=== PATIENT | female | born 1950 | race Caucasian/White ===

== ENCOUNTER 2020-03-10 11:25 | Outpatient (REF) | payer MEDICARE, SELFPAY ==
--- NOTE | 2020-03-10 | MM_ITS ---
EXAMINATION: BONE DENSITOMETRY CLINICAL INDICATION: Encounter for screening for osteoporosis. Osteopenia. COMPARISON: Previous BD dated 01/03/2015 and baseline BD dated 05/22/2009. TECHNIQUE: Using a [employer] DXA System (software version: 13.1) manufactured by [employer], dual-energy x-ray absorptiometry was performed of the lumbar spine and left hip. The images are of good technical quality. Summary results are attached. FINDINGS: AP SPINE L1-L4: Current: BMD 0.958 g/cm2, Z-score -1.0, T-score -1.9, osteopenia, 1.3% decrease from previous, 5.1% decrease from baseline (<5% change is not significant). Prior: BMD 0.971 g/cm2. Baseline: BMD 1.009 g/cm2. LEFT FEMUR, NECK: Current: BMD 0.747 g/cm2, Z-score -1.0, T-score -2.1, osteopenia. Prior: BMD 0.793 g/cm2. Baseline: BMD 0.807 g/cm2. LEFT FEMUR, TOTAL: Current: BMD 0.733 g/cm2, Z-score -1.3, T-score -2.2, osteopenia, 9.7% decrease from previous, 11.9% decrease from baseline (<5% change is not significant). Prior: BMD 0.812 g/cm2. Baseline: BMD 0.832 g/cm2. IDENTIFIED RISK FACTORS: Height loss. Thiazide. Menopause. HISTORY OF FRACTURE: None listed. MEDICATIONS: Calcium supplement and/or multivitamin. IMPRESSION: 1. DIAGNOSIS: Osteopenia based on the lowest T-score value of -2.2 in the total femur applying World Health Organization criteria. 2. 10-YEAR FRACTURE RISK PREDICTION, FRAX: Major osteoporotic fracture (clinical spine, forearm, hip or shoulder) 11.1%. Hip fracture 2.0%. 3. Treatment Recommendations: NOF guidelines recommend consideration for treatment in postmenopausal women and men age 50 and older presenting with the following: -A hip or vertebral (clinical or morphometric) fracture. -T-score less than or equal to -2.5 at the femoral neck or spine after appropriate evaluation to exclude secondary causes. -Low bone mass at the hip or spine and a 10-year fracture probability by FRAX of greater than or equal to 3% for hip fracture or greater than or equal to 20% for major osteoporotic fracture based on the [place] adapted WHO algorithm. 4. Other Recommendations: All treatment decisions require clinical judgment and consideration of individual patient factors, including patient preferences, comorbidities, previous drug use, risk factors not captured in the FRAX model (e.g. frailty, falls, vitamin D deficiency, increased bone turnover, interval significant decline in bone density) and possible under or overestimation of fracture risk by FRAX. Additional medical evaluation for secondary cause of low bone mineral density may be appropriate. FUTURE SCAN RECOMMENDATION: People with diagnosed cases of osteoporosis or at high risk for fracture should have regular bone mineral density tests. For patients eligible for Medicare, routine testing is allowed once every 2 years. The testing frequency can be increased to one year for patients who have rapidly progressing disease, those who are receiving or discontinuing medical therapy to restore bone mass, or have additional risk factors.
--- NOTE | 2020-03-10 12:02 | MM_ITS ---
EXAMINATION: MM SCREENING DIGITAL BREAST TOMOSYNTHESIS, BILATERAL CLINICAL INFORMATION: Screening. Asymptomatic. The lifetime risk of breast cancer based on the Tyrer-Cuzick Model is 6%. COMPARISON: Mammography: 02/19/2019, 02/07/2018 TECHNIQUE: Digital breast tomosynthesis is performed in both the craniocaudal and mediolateral oblique views along with computer-aided detection (CAD). Synthesized 2D images are generated from the tomosynthesis. FINDINGS: There are scattered areas of fibroglandular density (ACR BI-RADS breast composition Category b). There are no significant masses, abnormal calcifications, or other abnormalities. There is biopsy clip marker again noted right breast upper outer quadrant. The axilla and skin contours are unremarkable. No significant changes. IMPRESSION: No mammographic evidence of malignancy. ASSESSMENT: BI-RADS 1: Negative RECOMMENDATION: Routine annual mammography screening. This patient's information was entered into a reminder system with a target due date for their next mammogram.
== END 2020-03-10 11:26 | disposition home or self-care (01) ==
LOC: HO.MAMMO 11:25
PROVIDERS: Visit Provider Internal Medicine
DX: Z12.31 Encounter for screening mammogram for malignant neoplasm of breast (principal); Z13.820 Encounter for screening for osteoporosis; R29.890 Loss of height; Z78.0 Asymptomatic menopausal state; Z79.899 Other long term (current) drug therapy
CPT/HCPCS: 77063; 77067; 77080

== ENCOUNTER 2021-03-24 09:27 | Outpatient (REF) | payer MEDICARE, SELFPAY ==
--- NOTE | ~2021-03-24 | MM_ITS ---
EXAMINATION: MM SCREENING DIGITAL BREAST TOMOSYNTHESIS, BILATERAL CLINICAL INFORMATION: Screening. Asymptomatic. The lifetime risk of breast cancer based on the Tyrer-Cuzick Model is 5%. COMPARISON: Mammography: 03/10/2020, 02/19/2019, 02/07/2018 TECHNIQUE: Digital breast tomosynthesis is performed in both the craniocaudal and mediolateral oblique views along with computer-aided detection (CAD). Synthesized 2D images are generated from the tomosynthesis. Additional left MLO view and additional right CC view are provided. FINDINGS: There are scattered areas of fibroglandular density (ACR BI-RADS breast composition Category b). There are no significant masses, abnormal calcifications, or other abnormalities. There is biopsy clip marker right breast mid upper outer quadrant. Parenchymal pattern is similar to prior studies. MM/MM tomosynthesis screening BI IMPRESSION: No mammographic evidence of malignancy. ASSESSMENT: BI-RADS 1: Negative RECOMMENDATION: Routine annual mammography screening. This patient's information was entered into a reminder system with a target due date for their next mammogram.
== END 2021-03-24 09:28 | disposition home or self-care (01) ==
LOC: HO.MAMMO 09:27
PROVIDERS: PCP Internal Medicine; Visit Provider Internal Medicine
DX: Z12.31 Encounter for screening mammogram for malignant neoplasm of breast (principal)
CPT/HCPCS: 77063; 77067

== ENCOUNTER 2022-03-30 09:30 | Outpatient (REF) | payer MEDICARE, SELFPAY ==
--- NOTE | ~2022-03-30 | MM_ITS ---
EXAMINATION: MM SCREENING DIGITAL BREAST TOMOSYNTHESIS, BILATERAL CLINICAL INFORMATION: Screening. Asymptomatic. COMPARISON: Mammography: March 24, 2021 and studies dating back to January 02, 2016 TECHNIQUE: Digital breast tomosynthesis is performed in both the craniocaudal and mediolateral oblique views along with computer-aided detection (CAD). Synthesized 2D images are generated from the tomosynthesis. FINDINGS: There are scattered areas of fibroglandular density (ACR BI-RADS breast composition Category b). There are no significant masses, abnormal calcifications, or other abnormalities. MM/MM tomosynthesis screening BI IMPRESSION: No significant changes from prior exam. ASSESSMENT: BI-RADS 1: Negative RECOMMENDATION: Routine annual mammography screening. This patient's information was entered into a reminder system with a target due date for their next mammogram.
== END 2022-03-30 09:31 | disposition home or self-care (01) ==
LOC: HO.MAMMO 09:30
PROVIDERS: PCP Internal Medicine; Visit Provider Internal Medicine
DX: Z12.31 Encounter for screening mammogram for malignant neoplasm of breast (principal)
CPT/HCPCS: 77063; 77067

== ENCOUNTER 2023-04-05 09:35 | Outpatient (REF) | payer MEDICARE, SELFPAY ==
--- NOTE | ~2023-04-05 | MM_ITS ---
EXAMINATION: MM SCREENING DIGITAL BREAST TOMOSYNTHESIS, BILATERAL CLINICAL INFORMATION: Screening. Asymptomatic. The patient has a remote history of a right excisional breast biopsy for benign disease. COMPARISON: Mammography: This study is compared with prior exams dating back to 2017. TECHNIQUE: Digital breast tomosynthesis is performed in both the craniocaudal and mediolateral oblique views along with computer-aided detection (CAD). Synthesized 2D images are generated from the tomosynthesis. FINDINGS: There are scattered areas of fibroglandular density (ACR BI-RADS breast composition Category b). There are no significant masses, abnormal calcifications, or other abnormalities. There is a tissue marker in the upper outer quadrant of the right breast from prior benign percutaneous biopsy. There are a few, bilateral benign secretory calcifications in each breast. MM/MM tomosynthesis screening BI IMPRESSION: No mammographic evidence of malignancy. ASSESSMENT: BI-RADS BI-RADS 2 - Benign Findings RECOMMENDATION: Routine annual mammography screening. 1 year F/U This examination should not preclude the clinical evaluation of a suspicious palpable abnormality. This patient's information was entered into a reminder system with a target due date for their next mammogram.
== END 2023-04-05 09:36 | disposition home or self-care (01) ==
LOC: HO.MAMMO 09:35
PROVIDERS: PCP Internal Medicine; Visit Provider Internal Medicine
DX: Z12.31 Encounter for screening mammogram for malignant neoplasm of breast (principal)
CPT/HCPCS: 77063; 77067

== ENCOUNTER → 2023-04-05 09:45 | Outpatient (BNV) | payer MEDICARE, SELFPAY | PROVIDERS: PCP Internal Medicine; Visit Provider Radiology Diagnostic Radiology | DX: Z12.31 Encounter for screening mammogram for malignant neoplasm of breast (principal) | CPT/HCPCS: 77063; 77067 ==

== ENCOUNTER 2024-03-26 01:15 | Emergency (ER) | payer MEDICARE, SELFPAY ==
[2024-03-26 01:18] VITALS: BP 214/88; PULSE 109; RESP 16; TEMP 36.6; O2SAT 98; BMI 37.5
--- NOTE | 2024-03-26 01:28 | ECG_ITS ---
Test Reason : hypertension Blood Pressure : / mmHG Vent. Rate : 094 BPM Atrial Rate : 094 BPM P-R Int : 132 ms QRS Dur : 090 ms QT Int : 372 ms P-R-T Axes : 054 046 024 degrees QTc Int : 465 ms Normal sinus rhythm Nonspecific ST abnormality Abnormal ECG When compared with ECG of 24-OCT-2018 10:29, No significant change was found Referred By: Generic ED Physician Electronically Signed By:SONALI MAZA MD
[2024-03-26 01:45] VITALS: BP 170/72; PULSE 74; RESP 15; TEMP 36.8; O2SAT 97
[2024-03-26 01:59] LABS: MANUAL DIFF FLAG NO
--- NOTE | 2024-03-26 01:59 | MHC.EDTECH ---
This pct just assumed care of Patient ,ekg taken and was read by Provider ,blood drawn and sent to lab ,Patient was change into hospital attire and hooked up to night monitor ,NO apparent distress noted at this time ,Patient watching television ,Patient daughter at bedside ,will continue to monitor .
[2024-03-26 02:00] LABS: Basophils Percent Auto 0.3 % (0-2); Eosinophils Absolute Auto 0.1 X10*3/uL (0.0-0.4); Eosinophils Percent Auto 1.9 % (0-4); Hematocrit 34.4 % (37.0-47.0); Hemoglobin 11.7 g/dl (12.0-16.0); Imm Gran Abs Auto 0.01 X10*3/uL (0.00-0.03); Imm Gran Pct Auto 0.2 % (0.0-0.4); Lymphocytes Absolute Auto 1.4 X10*3/uL (1.2-4.9); Lymphocytes Percent Auto 23.6 % (20-40); Mean Corpuscular Hemoglobin 28.1 pg (27.0-33.0); Mean Corpuscular Volume 82.7 fL (80.0-98.0); Mean Platelet Volume 9.7 fL (9.4-12.3); Monocytes Absolute Auto 0.4 X10*3/uL (0.1-1.2); Monocytes Percent Auto 6.3 % (2-11); Neutrophils Percent Auto 67.7 % (45-73); Platelet Count 162 X10*3/uL (160-400); Red Blood Count 4.16 X10*6/uL (4.20-5.50); Red Cell Distribution Width 14.2 % (11.0-16.0); White Blood Count 5.9 X10*3/uL (4.8-10.8)
--- NOTE | 2024-03-26 02:10 | ED_ITS ---
HPI - General Adult General Chief complaint: General Medical Stated complaint: high blood pressure Time Seen by Provider: 03/26/24 02:02 Source: patient Mode of arrival: ambulatory Limitations: no limitations History of Present Illness ED Provider: joanna BARNES narrative: Patient's history of hypertension anxiety on Zoloft and clonidine taking lisinopril and verapamil for blood pressure control comes here as since there p.m. patient noticed her blood pressure was on the higher side increased to 210/112 at home patient also feels anxious and same time patient noticed palpitation with lasted only for few minutes heart rate was in 120s on arrival patient's blood pressure was 214/88 with heart rate of on 109 No chest pain , no dizziness no loss of consciousness Related Data Allergies Allergy/AdvReac Type Severity Reaction Status Date / Time ciprofloxacin [CIPROFLOXACIN] Allergy Intermediate RASH Verified 03/26/24 01:18 Sulfa (Sulfonamide Allergy Intermediate RASH Verified 03/26/24 01:18 Antibiotics) Review of Systems 2 Review of Systems: Yes all other systems are reviewed and are negative [facility] Social History Social History Advance Directives: No Advance Directives Information Provided: Yes Do you have a plan to hurt others: No Plan Physical Exam ED Vital Signs: Vital Signs - 24 hr 03/26/24 01:18 Temperature 97.9 F Pulse Rate 109 H Respiratory Rate 16 Blood Pressure 214/88 H Pulse Oximetry 98 Oxygen Delivery Method Room Air BMI result Body Mass Index 37.5 Appearance: Alert. Oriented X3. No acute distress. Eyes: PERRLA, No Nystagmus ENT: Pharynx normal. Oral Mucosa moist Neck: Normal inspection. Neck supple. CVS: Normal heart rate and rhythm. Pulses normal. Respiratory: No respiratory distress. Equal air entry bilateral, no wheezing/rales/rhonchi Abdomen: Soft and nontender. Bowel sounds are present, no mass palpable, no CVA tenderness Skin: Skin warm and dry. Normal skin color. Normal skin turgor. Extremities: No lower extremity edema. No calf tenderness Neuro: Oriented X 3. No motor deficit. No sensory deficit.No cerebellar signs , cranial nerves II-XII intact Medical Decision Making Medical Decision Making MDM Narrative: Patient with transient elevated blood pressure with palpitation episode already taking were verapamil 240 mg and lisinopril 40 advised to increase the dose of lisinopril by 20 mg in case blood pressure stays high and follow up with child care group leader for further evaluation including Holter monitoring Differential Diagnosis Differential Diagnoses: The differential diagnosis associated with the presentation includes SVT/AFib/atrial flutter/PACs/PVCs Consult Healthcare Provider Management of the patient was discussed with: Hospitalist Lab Data [facility] Lab Attestation statement: I reviewed the patient's lab results. 03/26/24 01:56 03/26/24 01:55 Labs: Lab Results 03/26/24 03/26/24 Range/Units 01:55 01:56 WBC 5.9 (4.8-10.8) X10*3/uL RBC 4.16 L (4.20-5.50) X10*6/uL Hgb 11.7 L (12.0-16.0) g/dl Hct 34.4 L (37.0-47.0) % MCV 82.7 (80.0-98.0) fL MCH 28.1 (27.0-33.0) pg MCHC 34.0 (31.0-35.0) g/dl RDW 14.2 (11.0-16.0) % Plt Count 162 (160-400) X10*3/uL MPV 9.7 (9.4-12.3) fL Immature Gran % (Auto) 0.2 (0.0-0.4) % Neut % (Auto) 67.7 (45-73) % Lymph % (Auto) 23.6 (20-40) % Tama % (Auto) 6.3 (2-11) % Eos % (Auto) 1.9 (0-4) % Baso % (Auto) 0.3 (0-2) % Lymph # (Auto) 1.4 (1.2-4.9) X10*3/uL Tama # (Auto) 0.4 (0.1-1.2) X10*3/uL Eos # (Auto) 0.1 (0.0-0.4) X10*3/uL Baso # (Auto) 0.0 (0.0-0.2) X10*3/uL Abs Immat Gran (auto) 0.01 (0.00-0.03) X10*3/uL Absolute Neuts (auto) 4.0 (2.0-8.3) x10*3/uL Absolute Nucleated RBC 0.000 (0.0-0.012) X10*3/uL Nucleated RBC % (auto) 0.0 (0.0-0.2) /100WBC Sodium 140 (135-145) mmol/L Potassium 4.0 (3.3-5.1) mmol/L Chloride 102 (96-108) mmol/L Carbon Dioxide 22 (22-29) mmol/L Anion Gap 20 (12-20) BUN 12 (9-16) mg/dL Creatinine 0.85 (0.5-1.4) mg/dL Estim Creat Clear Calc 61.0 Estimated GFR > 60 Random Glucose 121 H (60-115) mg/dL Calcium 10.2 (8.4-10.2) mg/dL Total Bilirubin 0.4 (0.0-1.0) mg/dL AST 41 H (5-31) U/L ALT 32 H (0-31) U/L Alkaline Phosphatase 95 (39-117) U/L Troponin I High Sens 2.9 (<3.5-17.0) ng/L Total Protein 7.7 (6.5-8.0) g/dL Albumin 4.2 (3.5-5.0) g/dL Discharge Plan Discharge Clinical Impression: Heart palpitations, Essential (primary) hypertension Patient Disposition: Home, Self-Care Instructions: Heart Palpitations (ED), Chronic Hypertension (DC) Additional Instructions: Continue take your blood pressure medication normal blood pressure should be less than 140/85 Blood pressure persistently elevated take extra half tablet of lisinopril (20 mg) Follow up with your PCP/child care group leader Referrals: Sukhi Galeas MD [Physician] - 1 week Print Language: Portuguese
[2024-03-26 02:15] LABS: Alanine Aminotransferase 32 U/L (0-31); Albumin Level 4.2 g/dL (3.5-5.0); Alkaline Phosphatase 95 U/L (39-117); Anion Gap 20 (12-20); Aspartate Amino Transferase 41 U/L (5-31); Bilirubin Total 0.4 mg/dL (0.0-1.0); Blood Urea Nitrogen 12 mg/dL (9-16); Calcium 10.2 mg/dL (8.4-10.2); Carbon Dioxide 22 mmol/L (22-29); Chloride 102 mmol/L (96-108); Estimated Glomerular Filt Rate > 60; Glucose Random 121 mg/dL (60-115); Sodium 140 mmol/L (135-145); Total Protein 7.7 g/dL (6.5-8.0)
[2024-03-26 02:19] LABS: Troponin-I High Sensitivity 2.9 ng/L (<3.5-17.0)
--- OUTSIDE RECORDS SUMMARY | 2024-03-26 02:32 | XMS_ITS | Patient Health Record ---
Author Organization [facility] Address [address] [place] [id number] Care Team Providers Care Flatbed Press Operator Name Role Phone John VÁZQUEZ, Brian Primary Care Provider Alexis Abdi [phone] ALLERGIES Allergen (clinical drug ingredient) Drug/Non Drug Allergy documented on EMR Reaction Allergy Type Onset Date Status sulfacetamide Sulfacetamide Sodium Unknown Drug Allergy Active Ciprofloxacin Unknown Drug Allergy Act niurka REASON FOR REFERRAL No Information MEDICATIONS Medication SIG (Take, Route, Frequency, Duration) Notes Start Date End Date Status Verapamil HCl ER 240 MG TAKE 1 TABLET BY MOUTH EVERY DAY Oral for 90 Active Lisinopril 40 MG TAKE 1 TABLET BY MOUTH EVERY DAY Oral for 90 Active glipiZIDE 5 MG TAKE 1 TABLET BY MOUTH TWICE A DAY Oral for 90 Active Dicyclomine HCl 10 MG 1-2 Orally Each morning right when you get up in the morning, then take Q 6 hours as needed for abdominal cramps and loose stools for 30 day(s) 03/31/2021 Active hydroCHLOROthiazide 25 MG TAKE 1 TABLET BY MOUTH EVERY DAY Oral for 90 Active Ferrous Sulfate 325 (65 Fe) MG 1 tablet Orally Once a day for 30 day(s) Active Co Q 10 Active Pioglitazone HCl 15 MG 1 tablet Orally O nce a day for 30 day(s) Active Vitamin B12 Active Vitamin E 180 MG (400 UNIT) 1 capsule Or ally Once a day for 30 day(s) Active Calcium chews Active metFORMIN HCl 1000 MG TAKE 1 TABLET BY MOUTH TWICE A DAY DIRECTED Oral for 90 Active Omeprazole 20 MG TAKE 1 CAPSULE BY MOUTH EVERY DAY Oral for 90 Active Atorvastatin Calcium 10 MG TAKE 1 TABLET BY MOUTH EVERY DAY Oral for 90 Active cloNIDine HCl 0.1 MG TAKE 1 TABLET BY MOUTH TWICE A DAY Oral for 90 Active IMMUNIZATIONS Vaccine Route Administration Date Status Comme nts Influenza Unknown 01/21/2019 Administered Influenza Unknown 02/21/2020 Administered Influenza Unknown 03/13/2021 Administered SOCIAL HISTORY Tobacco Use: Social History Observation Description Date Details (start date - stop date) Former Smoker NA - NA Sex Assigned At : Social History Observation Description Sex Assigned At Unknown Tobacco Use/Smoking Question Answer Notes Patient is a former smoker How long has it been since you last smoked? > 10 years Alcohol Screen Question Answer Notes Did you have a drink contain ing alcohol in the past year? Yes How often did you have a dri nk containing alcohol in the past year? Monthly or less (1 point) How many drinks did you have on a typical day when you were drinking in the past year? 1 or 2 drinks (0 point) How often did you have 6 or more drinks on one occasion in the past year? Never (0 point) Points 1 Interpretation Negative PROBLEMS Problem Type ICD Code Onset Dates Problem Status W/U Status Risk SNOMED Code Notes Problem Iron deficiency anemia, unspecified iron deficiency anemia type (D50.9) Active confirmed 48147208 Problem Other irritable bowel syndrome (K58.8) Active confirmed 81615353 PLAN OF TREATMENT Pending Test Test Name Order Date IRON + IBC (FE) 10/19/2019 FERRITIN 10/19/2019 VITAMIN B12 AND FOLATE 10/19/2019 CBC w DIFF 10/19/2019 CELIAC PANEL #10 10/19/2019 Future Test Test Name Order Date UPPER GI ENDOSCOPY 10/19/2019 COLONOSCOPY 10/19/2019 Insurance Providers Payer Name Payer Address Payer Phone Subscriber Number Group Number Insured Name Patient Relationship to Insured Coverage Start Date Coverage End Date MEDICARE OF [place] [address] [place] [id number] [phone] [id number] CELESTINO HOFFMAN Self - patient is the insured [employer] ATT[employer] CLAIMS [address] [place] [address] [id number] CELESTINO HOFFMAN Self - patient is the insured MEDICAL (GENERAL) HISTORY Medical History History ICD Code Hypertension Hypercholesterolemia NIIDM ERCP for CBD stones with sphincterotomy by me in 2008 Denies ND,CVA,Lung disease,renal disease She reports a neg. colonoscopy in 2019 w [facility] Dr. Garcia Neg. colonoscopies in 2004 ( except for ischemic colitis ) and in 2007 in [place] and [place] with Dr. Dahl, respectively GERD--Reported neg. EGD [place] [address] Dahl Iron def anemia--upper endos copy in October of 2019 revealed a hiatal hernia, but no esophagitis, Falk's esophagus, nor celiac disease. A colonoscopy was negative other than a small non-adenomatous polyp which was removed. Reported fatty liver IBS Surgical History Surgery Date(Month/Year) Right knee replacement 2018 Cholecystectomy 2009
[2024-03-26 02:33] VITALS: BP 157/56; PULSE 87; RESP 15; TEMP 36.7; O2SAT 96
--- NOTE | 2024-03-26 02:52 | PC.NURSE ---
Provider in to discusss for assessment and plan of care, reviewed discharge instructions with pt. pt verbalized understanding, no sign of distress, no sob or chest pain, pt had steady gait upon discharge.
[2024-03-26 02:53] VITALS: BP 157/65; PULSE 87; RESP 15; TEMP 36.7; O2SAT 98
== END 2024-03-26 02:54 | disposition home or self-care (01) ==
PROVIDERS: Emergency Provider Internal Medicine; PCP Internal Medicine
DX: I10 Essential (primary) hypertension (principal); R00.2 Palpitations; F41.9 Anxiety disorder, unspecified; Z79.899 Other long term (current) drug therapy
CPT/HCPCS: 36415; 80053; 84484; 85025; 93005; 99283; 99284

== ENCOUNTER → 2024-03-26 01:28 | Outpatient (BNV) | payer MEDICARE, SELFPAY | PROVIDERS: Emergency Provider Internal Medicine; PCP Internal Medicine; Visit Provider Internal Medicine Cardiovascular Disease | DX: I10 Essential (primary) hypertension (principal) | CPT/HCPCS: 93010 ==

== ENCOUNTER 2024-05-22 11:46 | Outpatient (REF) | payer MEDICARE, SELFPAY | END 2024-05-22 11:47 | disposition home or self-care (01) | LOC: HO.MAMMO 11:46 | PROVIDERS: PCP Internal Medicine; Visit Provider Internal Medicine | DX: Z12.31 Encounter for screening mammogram for malignant neoplasm of breast (principal) | CPT/HCPCS: 77063; 77067 ==

== ENCOUNTER → 2024-05-22 12:00 | Outpatient (BNV) | payer MEDICARE, SELFPAY | PROVIDERS: PCP Internal Medicine; Visit Provider Internal Medicine | DX: Z12.31 Encounter for screening mammogram for malignant neoplasm of breast (principal) | CPT/HCPCS: 77063; 77067 ==